=== PATIENT | female | born 1995 | race Two or more races ===

== ENCOUNTER 2019-09-07 18:37 | Emergency (ER) | payer OTHER ==
[~2019-09-07] VITALS: Ht 157.5 cm; Wt 50.3 kg
[~2019-09-07 18:37] MED LIST: LEVSIN/SL0.125 MG SL; LOW-OGESTREL1 TAB; OMEPRAZOLE40 MG; PEPCID40 MG PO; PHENERGAN25 MG PO; PROTONIX40 MG PO; ZANTAC150 M3
== END 2019-09-07 22:57 | disposition home or self-care (01) ==
LOC: ER 18:37
DX: B34.8 Other viral infections of unspecified site (principal); B96.0 Mycoplasma pneumoniae [M. pneumoniae] as the cause of diseases classified elsewhere; R11.10 Vomiting, unspecified

== ENCOUNTER 2019-09-09 12:55 | Inpatient (IN) | payer OTHER ==
[~2019-09-09] VITALS: Ht 160 cm; Wt 49.4 kg
--- NOTE | 2019-09-09 13:26 | NUR ---
SE RECIBE PTE ALERTA Y ORIENTADA X3 ACOMPANADA DE FAMILIAR.PTE REFIERE VENIR POR TOS PERSISTENTE CON SECRECIONES SANGUINOLENTAS, DEBILIDAD, DOLOR DE CUERPO Y FIEBRE. PTYE REFIEERE ESTAR CON MICOPLASMA. SE MIDEN S/V A PTE, PTE CON BP 70/40 MANUAL SE PRESENTA A DRFranca BUTCHERPALMER EL CUAL REFIERE A COLOCA A PTE EN AREA DE SEC. K. PTE SE ACOMODA.
--- NOTE | 2019-09-09 16:11 | NUR ---
PACIENTE ALERTA Y ORIENTADA X3. SE ORIENTA SOBRE TX Y PROCEDIMIENTO A REALIZAR Y REFIERE ENTENDER. SE ADMINISTRA MEDICAMENTO MIKI ORDEN MEDICA. SE REALIZA MUESTRAS DE LABORATORIO BAJO MEDIDAS ASEPTICAS. CANALIZACION PATENTE Y SAEID DE EDEMA Y ERITEMA. SE MANTIENE BAJO OBSERVACION POR CAMBIOS SIGNIFICATIVOS. SE ADMINISTRO 0.9 NSS DE 250ML FULL DRIP POR BP MANUAL EN 80/50MMHG POR ORDEN DE DR. PALMER. SE REALIZO EKG Y SE PRESENTO AL DOCTOR.
--- NOTE | 2019-09-09 22:00 | NUR ---
SE RECIBE PTE ALERTA Y ORIENTADA X3 EN CAMA CON BARANDAS ELEVADAS. SE CONECTA A MONITOR CARDIACO Y OXIMETRIA. PTE CON VENTURY MASK AL 50%. SE LE COLOCA STAN[place]ORD PROTECTIVO, PTE CANALIZADA EN MANO DERECHA AREA SAEID DE EDEMA Y DE ENROJECIMIENTO. SE CINDY MUESTRA DE LAB. MIKI ORDEN MEDICA BAJO MEDIDAS ASEPTICAS. SE CANALIZA EN BRAZO LUCIA AREA SAEID DE EDEMA Y DE ENROJECIMIENTO. SE LE ADMINISTRAN MEDICAMETOS MIKI ORDEN MEDICA Y SE EDUCA SOBRE TRATAMIENTO MEDICO.PTE SE MANTIENE BAJO OBSERVACION POR CAMBIOS.
--- NOTE | 2019-09-10 00:04 | NUR ---
SE RECIBE PTE DEL TURNO ANTERIOR, ALERTA Y ORIENTADA X 3 ESFERAS, EN CAMA NIVEL MAS BAJO, ESPINOSA DE IDENTIFICACION Y BARANDAS ELEVADAS POR PRECAUCION. SE OBSERVA CON VENTURY MASK AL 50%, EL CUAL TOLERA MANTENIENDO BUEN PATRON RESPIRATORIO Y SATURANDO 100%, MIKI OXIMETRIA. PIEL TIBIA AL TACTO. IV EN MANO RT PATENTE Y SAEID DE EDEMA O ERITEMA AL MOMENTO CON 0.9% NSS @100ML/HR Y ZITHROMAX 500MG/250ML NSS @125ML/HR. H/L #18 EN BRAXO LT EL MISMO PATENTE Y SAEID DE EDEMA O ERITEMA. PTE REFIERE DOLOR ABDOMINAL, SE NOTIFICA A DR BONILLA A LAS 11:00PM QUIEN ORDENA EL TX. B/P 79/47, SE NOTIFICA A DR Luis ASHRAF A LAS 11:40PM QUIEN ORDENA FLUID CHALLENGE 500ML DE 0.9%NSS, LUEGO MANTENER EL MISMO A 150ML/HR. SE MANTIENE PTE BAJO OBSERVACION, EL MOMENTO CON MATA DE AISLAMIENTO, PTE ORIENTADA SOBRE EL MISMO. SE MANTIENE EN CAMA NIVEL MAS BAJO, ESPINOSA DE IDENTIFICACION, BARANDAS ELEVADAS POR PRECAUCION Y CONECTADA A MONITOR CARDIACO Y OXIMETRIA DE PULSO.
--- NOTE | 2019-09-10 00:49 | NUR ---
SE NOTIFICA B/P MANUAL 80/[address] ASHRAF QUIEN ORDENA LEVOPHED 8MG/250ML DW5% @10ML/HR. SE ADMINISTRA EL MISMO Y SE MANTIENE BAJO OBSERVACION.
--- NOTE | 2019-09-10 07:41 | NUR ---
7:00AM- SE RECIBE PTE FEMENINA EN CAMA #3 LA CUAL SE ENCUENTRA ALERTA Y ORIENTADA, LA MISMA SE OBSERVA CONECTADA A MONITOR CARDIACO Y OXIMETRIA DE PULSO SATURANDO UN 100% ASISTIDA POR VM AT 50% SE OBSERVA CON BUEN PATRON RESPIRATORIO SIN USO DE MUSCULOS ACCESORIOS. PTE PRESENTA PIEL TIBIA A EL TACTO CON AREA DE VENOPUNCION SAEID DE EDEMA Y ENROJECIMIENTO CON IV FLUID PATENTE 0.9NSS AT 150ML/HR Y LEVOPHED 8MG/250 D5W AT 10ML/HR. PTE SE MANTIENE CON ORINA ESPONTANEA, LA MISMA SE ENCUENTRA EN ISO PORTATIL EN ESPERA DE CONSULTA CON MEDICINA INTERNA DR. Luis ASHRAF. SE MANTIENE PTE BAJO OBSERVACION POR CAMBIOS SIGNIFICATIVOS.
== END 2019-09-26 12:10 | disposition home or self-care (01) | DRG 193 ==
LOC: ER 12:55 → ICU-2 09-10 10:11 → ICU 09-13 13:05 → SURH 09-22 18:23
PROVIDERS: ADMIT Internal Medicine
PROC: B246ZZZ Ultrasonography of Right and Left Heart (ICD-10-PCS; principal; 2019-09-10)
PROC: BW40ZZZ Ultrasonography of Abdomen (ICD-10-PCS; 2019-09-10)
PROC: 8E0ZXY6 Isolation (ICD-10-PCS; 2019-09-10)
PROC: 3E0F7GC Introduction of Other Therapeutic Substance into Respiratory Tract, Via Natural or Artificial Opening (ICD-10-PCS; 2019-09-10)
PROC: 4A033R1 Measurement of Arterial Saturation, Peripheral, Percutaneous Approach (ICD-10-PCS; 2019-09-10)
PROC: BH40ZZZ Ultrasonography of Right Breast (ICD-10-PCS; 2019-09-18)
PROC: BB4BZZZ Ultrasonography of Pleura (ICD-10-PCS; 2019-09-20)
PROC: 4A1HXCZ Monitoring of Products of Conception, Cardiac Rate, External Approach (ICD-10-PCS; 2019-09-22)
DX: J15.7 Pneumonia due to Mycoplasma pneumoniae (principal); A41.9 Sepsis, unspecified organism; R04.2 Hemoptysis; J90 Pleural effusion, not elsewhere classified; J09.X2 Influenza due to identified novel influenza A virus with other respiratory manifestations; I34.0 Nonrheumatic mitral (valve) insufficiency; I37.1 Nonrheumatic pulmonary valve insufficiency; K29.60 Other gastritis without bleeding

== ENCOUNTER 2021-12-30 13:27 | Emergency (ER) | payer OTHER ==
[~2021-12-30] VITALS: Ht 160 cm; Wt 61.7 kg
[2021-12-30] MEDS ORDERED: BENZONATATE200 M1 PO (17:53)
[2021-12-30] MEDS ORDERED: ZITHROMAX500 MG PO (17:53)
[2021-12-30] MEDS ORDERED: ALBUTEROL0.63 MG/3 IH (17:56)
== END 2021-12-30 18:05 | disposition home or self-care (01) ==
LOC: ER 13:27
DX: J06.9 Acute upper respiratory infection, unspecified (principal); R09.3 Abnormal sputum; Z20.822 Contact with and (suspected) exposure to COVID-19

== ENCOUNTER 2022-11-21 14:56 | Emergency (ER) | payer OTHER ==
[~2022-11-21] VITALS: Ht 160 cm; Wt 59.9 kg
[~2022-11-21 14:56] MED LIST changes: +ALBUTEROL0.63 MG/3 IH; +BENZONATATE200 M1 PO; +ZITHROMAX500 MG PO
[2022-11-21] MEDS ORDERED: ESCITALOPRAM OX10 MG PO (15:17)
[2022-11-21] MEDS ORDERED: ESCITALOPRAM OXA5 MG PO (15:18)
[2022-11-21] MEDS ORDERED: SPRINTEC 28 DA1 EACH PO (15:18)
== END 2022-11-21 18:49 | disposition home or self-care (01) ==
LOC: ER 14:56
DX: N93.9 Abnormal uterine and vaginal bleeding, unspecified (principal)

== ENCOUNTER 2023-05-17 05:30 | Day surgery (SDC) | payer OTHER ==
[2023-05-13 08:52] LABS: HEMATOCRIT 36.6 % (36.0-45.00); HEMOGLOBIN 12.5 g/dL (12.0-15.00); MEAN CELL VOLUME 84.3 fL (80.00-100.00); MEAN CORPUSCULAR HEMOGLOBIN 28.9 pg (27.00-32.0); MEAN CORPUSCULAR HGB CONC 34.3 g/dl (32.0-36.0); PLATELET COUNT 324 K/uL (150-450); RED BLOOD COUNT 4.35 M/uL (4.00-6.00); RED CELL DISTRIBUTION WIDTH 13.7 % (11.5-14.5)
[2023-05-13 09:17] LABS: INR 0.98; PARTIAL THROMBOPLASTIN TIME 27.2 SECONDS (22.0-34.0); PROTHROMBIN TIME 10.3 SECONDS (9.0-11.5)
[2023-05-13 09:24] LABS: ALBUMIN 3.8 gm/dL (3.4-5.0); BILIRUBIN TOTAL 0.41 mg/dL (0.3-1.2); CALCIUM 8.9 mg/dL (8.5-10.1); CREATININE SERUM 0.76 mg/dL (0.55-1.02); GFR 91.99; POTASSIUM 4.41 mEq/L (3.5-5.1); TOTAL PROTEIN 7.8 gm/dL (6.4-8.2)
[2023-05-13 09:34] LABS: PH,URINE 5.5 (5.0-8.0); URINE APPEARANCE Cloudy; URINE BILIRRUBIN Negative (NEGATIVE); URINE BLOOD Trace; URINE COLOR Dark Yellow; URINE GLUCOSE Negative (NEGATIVE); URINE LEUKOCYTE Trace; URINE NITRATE Negative; URINE PROTEIN Trace (NEGATIVE); URINE UROBILINOGEN 0.2 E.U./dl
[2023-05-13 09:35] LABS: URINE EPITHELIAL CELLS 67.8 uL (0.0-38.8); URINE RBC 8.4 uL (0.0-20.8); URINE WBC 59.3 uL (0.0-23.2)
[~2023-05-17 05:30] MED LIST changes: +ESCITALOPRAM OX10 MG PO; +ESCITALOPRAM OXA5 MG PO; +NORTREL1 EACH PO; +SPRINTEC 28 DA1 EACH PO
== END 2023-05-17 15:10 | disposition home or self-care (01) ==
LOC: CIR.AMB 05:30
PROVIDERS: ATTEND Obstetrics & Gynecology
DX: N84.0 Polyp of corpus uteri (principal); R10.2 Pelvic and perineal pain; N93.8 Other specified abnormal uterine and vaginal bleeding; N80.00 Endometriosis of the uterus, unspecified; Z20.822 Contact with and (suspected) exposure to COVID-19

== ENCOUNTER 2023-05-24 10:22 | Inpatient (IN) | payer OTHER ==
[~2023-05-24] VITALS: Ht 160 cm; Wt 55.3 kg
--- NOTE | 2023-05-24 10:45 | NUR ---
PTE ALERTA Y ORIENTADA X3 ACOMPANADA POR AMES MADRE. PTE REFIERE TENER UN DOLOR ABDOMINAL ROSSANA Y PERSISTENTE DESDE CRISTELA EN LA TARDE. NOTIFICA QUE SE LE REALIZO UN RASPE PARA EXTRAER QUISTES Y MERCEDES HISTEROSCOPIA EL PASADO POR EL DR. ROXANNE WEBBER. AL BRANDI DE HOY PTE REFIERE DOLOR NO DISMINUYE Y LAGOS PRESENTADO VOMITOS X4 Y DIARREAS.
[2023-05-24 12:10] LABS: HEMATOCRIT 41.7 % (36.0-45.00); HEMOGLOBIN 13.5 g/dL (12.0-15.00); MEAN CELL VOLUME 86.4 fL (80.00-100.00); MEAN CORPUSCULAR HGB CONC 32.3 g/dl (32.0-36.0); PLATELET COUNT 325 K/uL (150-450); RED BLOOD COUNT 4.82 M/uL (4.00-6.00); RED CELL DISTRIBUTION WIDTH 13.7 % (11.5-14.5)
[2023-05-24 12:11] LABS: URINE APPEARANCE Cloudy; URINE BILIRRUBIN Negative (NEGATIVE); URINE BLOOD Large; URINE COLOR Yellow; URINE GLUCOSE Negative (NEGATIVE); URINE LEUKOCYTE Small; URINE NITRATE Negative; URINE PROTEIN 30 (NEGATIVE); URINE UROBILINOGEN 0.2 E.U./dl
[2023-05-24 12:12] LABS: URINE BACTERIA 1753.7 uL (0.0-1933); URINE EPITHELIAL CELLS 52.2 uL (0.0-38.8); URINE RBC 235.6 uL (0.0-20.8); URINE WBC 131.5 uL (0.0-23.2)
[2023-05-24 12:26] LABS: INR 0.97; PARTIAL THROMBOPLASTIN TIME 24.8 SECONDS (22.0-34.0); PROTHROMBIN TIME 10.2 SECONDS (9.0-11.5)
[2023-05-24 12:30] LABS: CALCIUM 9.2 mg/dL (8.5-10.1); CREATININE SERUM 0.74 mg/dL (0.55-1.02); GFR 94.86; POTASSIUM 3.78 mEq/L (3.5-5.1)
--- NOTE | 2023-05-24 16:00 | NUR ---
SE RECIBE PTE ALERTA Y ORIENTADA X3 EN THOM BAJA CON BARANDAS ELEVADAS POR SEGURIDAD. SE OBSERVA CON BUEN PATRON RESPIRATORIO. RECIBIENDO IV FLUIDS DE MANTENIMIENTO. AREA DE VENOPUNCION SAEID DE EDEMA Y ERITEMA. PEND RESULTADOS DE LABORATORIOS
[2023-05-25 22:24] LABS: URINE APPEARANCE Cloudy; URINE BILIRRUBIN Negative (NEGATIVE); URINE BLOOD Large; URINE COLOR Yellow; URINE GLUCOSE Negative (NEGATIVE); URINE LEUKOCYTE Trace; URINE NITRATE Negative; URINE PROTEIN 30 (NEGATIVE); URINE UROBILINOGEN 0.2 E.U./dl
[2023-05-25 22:25] LABS: URINE BACTERIA 236.8 uL (0.0-1933); URINE EPITHELIAL CELLS 30.7 uL (0.0-38.8); URINE RBC 6750.6 uL (0.0-20.8)
[2023-05-27 21:06] LABS: chla t Negative (Negative); neiss Negative (Negative)
== END 2023-05-27 13:59 | disposition home or self-care (01) | DRG 392 ==
LOC: ER 10:23 → SEC-K 17:08 → MEDJ 17:08 → SEC-K 20:18 → MEDJ 20:19
PROVIDERS: General Practice; Internal Medicine Infectious Disease; ADMIT Internal Medicine; ATTEND Internal Medicine
PROC: BW21ZZZ Computerized Tomography (CT Scan) of Abdomen and Pelvis (ICD-10-PCS; principal; 2023-05-24)
DX: K52.89 Other specified noninfective gastroenteritis and colitis (principal); N39.0 Urinary tract infection, site not specified; R10.2 Pelvic and perineal pain

== ENCOUNTER 2025-01-13 09:55 | Emergency (ER) | payer OTHER ==
[~2025-01-13] VITALS: Ht 160 cm; Wt 54.4 kg
[2025-01-13] MEDS ORDERED: MIRENA1 EAC3 IY (11:22)
[2025-01-13] MEDS ORDERED: HYOSCYAMINE SULFATE 0.125 MG TAB.SUBL SL ONE (11:45)
[2025-01-13] MEDS ORDERED: FAMOtidine 10 MG/ML (4ML VIAL) IV ONE (11:45)
[2025-01-13] MEDS ORDERED: 0.9 % SODIUM CHLORIDE 1,000 ML IV ONE (11:45)
[2025-01-13 12:35] LABS: BASO % 0.5 % (0.1-1.2); EOS # 0.08 (0.04-0.54); EOS % 1.3 % (0.7-7.0); HEMATOCRIT 38.6 % (34.1-44.9); HEMOGLOBIN 12.8 g/dL (11.2-15.7); LYMPH # 1.78 (1.18-3.74); LYMPH % 28.2 % (19.3-53.1); MEAN CORPUSCULAR HEMOGLOBIN 28.5 pg (25.6-32.2); MONO # 0.37 (0.24-0.82); MONO % 5.9 % (4.7-12.5); NEUT # 4.01 (1.56-6.13); NEUT % 63.3 % (34.0-71.1); PLATELET COUNT 375 K/uL (163-369); RED BLOOD COUNT 4.49 M/uL (3.93-5.22); RED CELL DISTRIBUTION WIDTH 13.1 % (11.6-14.4)
[2025-01-13] MEDS ORDERED: HYOSCYAMINE SULFATE 0.125 MG TAB.SUBL ONE (12:37)
[2025-01-13] MEDS ORDERED: FAMOTIDINE/PF 20 MG/2 ML VIAL ONE (12:37)
[2025-01-13 12:54] LABS: PARTIAL THROMBOPLASTIN TIME 28.9 SECONDS (22.0-34.0); PROTHROMBIN TIME 10.9 SECONDS (9.0-11.5)
[2025-01-13 13:45] LABS: ALBUMIN 3.7 gm/dL (3.4-5.0); ALKALINE PHOSPHATASE 60 U/L (50-136); ALT/SGPT 17 U/L (12-78); ANION GAP 12 (10.0-20.0); AST/SGOT 11 U/L (15-37); BILIRUBIN TOTAL 0.37 mg/dL (0.3-1.2); BLOOD UREA NITROGEN 13 mg/dL (7-18); BUN CREA RATIO 19 (7.0-25.0); CALCIUM 9.4 mg/dL (8.5-10.1); CARBON DIOXIDE 24 mEq/L (21-32); CHLORIDE 110 mmol/L (98-107); CREATININE SERUM 0.68 mg/dL (0.55-1.02); GFR 103.03; GLOBULINA 4.2 G/DL (2.4-3.5); GLUCOSE FASTING 93 mg/dL (65-100); OSMOLALITY SERUM 283 MOSM/KG (275-295); SODIUM 142 mmol/L (136-145); TOTAL PROTEIN 7.9 gm/dL (6.4-8.2)
[2025-01-13 13:47] LABS: HCG QUANTITATIVE < 1 mUI/mL (1-3)
[2025-01-13 14:22] LABS: PH,URINE 5.5 (5.0-8.0); URINE APPEARANCE Clear; URINE BILIRRUBIN Negative (NEGATIVE); URINE COLOR Yellow; URINE GLUCOSE Negative (NEGATIVE); URINE KETONE Trace (NEGATIVE); URINE LEUKOCYTE Negative; URINE NITRATE Negative; URINE PROTEIN Negative (NEGATIVE); URINE UROBILINOGEN 0.2 E.U./dl
[2025-01-13 14:26] LABS: URINE BACTERIA 124.8 uL (0.0-1933); URINE EPITHELIAL CELLS 43.5 uL (0.0-38.8); URINE RBC 23.7 uL (0.0-20.8)
[2025-01-13 14:35] LABS: URINE BLOOD TRACE; URINE CAST 0.14 uL (0.0-1.40)
[2025-01-13] MEDS ORDERED: NORFLEX100MG PO (15:22)
[2025-01-13] MEDS ORDERED: PROTONIX40 MG PO (15:22)
== END 2025-01-13 16:02 | disposition home or self-care (01) ==
LOC: ER 09:55
PROVIDERS: General Practice
DX: K29.70 Gastritis, unspecified, without bleeding (principal); Z87.09 Personal history of other diseases of the respiratory system